=== PATIENT | female | born 1995 ===

== ENCOUNTER 2021-06-05 09:25 | Inpatient (IN) | payer OTHER ==
[~2021-06-05] VITALS: Ht 162.6 cm; Wt 69.4 kg
== END 2021-06-15 13:46 | disposition home or self-care (01) | DRG 807 ==
LOC: OB/GYN 06-13 06:02 → LDR 06-13 06:02 → OB/GYN 06-13 11:08 → SURH 06-15 14:00
PROVIDERS: ADMIT Obstetrics & Gynecology; ATTEND Obstetrics & Gynecology
PROC: 10E0XZZ Delivery of Products of Conception, External Approach (ICD-10-PCS; principal; 2021-06-13)
PROC: 10907ZC Drainage of Amniotic Fluid, Therapeutic from Products of Conception, Via Natural or Artificial Opening (ICD-10-PCS; 2021-06-13)
PROC: 3E033VJ Introduction of Other Hormone into Peripheral Vein, Percutaneous Approach (ICD-10-PCS; 2021-06-13)
PROC: 4A1HXFZ Monitoring of Products of Conception, Cardiac Rhythm, External Approach (ICD-10-PCS; 2021-06-13)
DX: O99.824 Streptococcus B carrier state complicating childbirth (principal); Z37.0 Single live birth; Z3A.39 39 weeks gestation of pregnancy